=== PATIENT | female | born 1965 | race Caucasian/White ===

== ENCOUNTER → 2016-10-18 | Outpatient (CLI) | payer MEDICARE, MEDICAID ==
[~2016-10-18] MED LIST: AMLO5TAB PO; AZITHROMYCIN250 MG PO; BACTRIM DS 8001 TA1 PO; BENZONATATE100 M1 PO; COMBIVENT INH14.7 GM IN; DIAZEPAM10 MG PO; HYZAAR 50-12.51 EACH PO; LISINOPRIL 10MG10 MG PO; LOSARTAN POTAS100 MG PO; MEDROL 4MG. DOSE4 MG PO; NIZORAL 2%15 GM/TUBE EX; NORCO1 TAB PO; PHENERGAN 25MG.25 M1 PO; TEKTURNA150 MG PO; VALIUM 10MG TAB10 MG; VALIUM10 MG PO; VICODIN ES 7.51 EACH PO; ZITHROMAX Z PA250 MG PO
--- NOTE | 2016-10-18 15:26 | RADIOLOGY REPORT PS360 ---
KNEE-4 OR 5 VIEWS-LT HISTORY: LEFT KNEE PAIN,MELCHOR SHOULDER PAIN ORDERING PHYSICIAN: Ramesh Berman MD PATIENT AGE: 51 years COMPARISON: None FINDINGS: Weightbearing views are performed There remains slight decrease in the joint space medially as before consistent with minor osteoarthritic change. No change with no acute finding. IMPRESSION: No change minimal osteoarthritic changes of the medial compartment of the knee
--- NOTE | 2016-10-18 15:28 | RADIOLOGY REPORT PS360 ---
[id number] VIEWS HISTORY: Left shoulder pain LEFT KNEE PAIN,MELCHOR SHOULDER PAIN ORDERING PHYSICIAN: Ramesh Berman MD PATIENT AGE: 51 years COMPARISON: None FINDINGS: No fracture or dislocation. No lytic or blastic change. There is normal mineralization. The joint spaces are well-preserved. There is minimal osteophyte formation along the inferior glenoid. No subacromial stenosis IMPRESSION: Minimal osteoarthritic change left shoulder
--- NOTE | 2016-10-18 15:29 | RADIOLOGY REPORT PS360 ---
[id number] VIEWS HISTORY: LEFT KNEE PAIN,MELCHOR SHOULDER PAIN ORDERING PHYSICIAN: Ramesh Berman MD PATIENT AGE: 51 years COMPARISON: None FINDINGS: No fracture or dislocation. There is mild hypertrophic change of the acromioclavicular joint. Small subcortical cyst is present at the greater tuberosity of the humerus. IMPRESSION: Minimal osteoarthritic change of the acromioclavicular joint
== END ==
LOC: RAD 13:54
DX: M25.562 Pain in left knee (principal); M25.511 Pain in right shoulder; M25.512 Pain in left shoulder

== ENCOUNTER 2016-11-07 13:00 | Emergency (ER) | payer MEDICARE, MEDICAID ==
[~2016-11-07] VITALS: Ht 157.5 cm; Wt 89.4 kg
--- NOTE | 2016-11-07 13:39 | Emergency Room Report ---
History of Present Illness Time Seen by 130Lesly Presenting Problem in Triage Pt arrived:Walked Presenting Problem:PT C/O COUGH, MUCUS, DRAINAGE, AND "RATTLING" IN HER CHEST. PT BELIEVES SHE CAUGHT BRONCHITIS FROM HER DAUGHTER. 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 N Clinical Suspician of Infection? Y Mental Status: 1 - Regular (Normal Baseline) Sepsis Risk:Possible Sepsis Risk Have you (or family members/close friends) recently traveled outside the [place]? N If Yes, where/when: Have you had exposure to infectious disease within the past month? N TB? Other? Specify: Source patient, RN notes reviewed Exam Limitations no limitations Comment comes to the ED with complaints of cough, congestion in both head and chest. Daughter recently diagnosed with Bronchitis and she thinks she may have it also. She is on Vicodin and Valium and has had a low grade temp some pain in chest into back and an elevated pulse up to 111 in the ED Cardiac Chest Pain Chest pain indicative of cardiac No ALLERGIES Coded Allergies: Sulfa (Sulfonamide Antibiotics) (UNKNOWN 10/03/15) duloxetine (UNKNOWN 10/03/15) Home Medications Reported Medications Albuterol-Ipratropium (Combivent Inhaler) 2 PUFFS IN PRN Losartan Potassium (Losartan 100MG) 100 MG PO DAILY HYDROCODONE/ACETAMINOPHEN ([place] 7.5-325 Tablet) 1 TAB PO TID Diazepam (Diazepam 10MG) 10 MG PO TID Amlodipine Besylate (Amlodipine) 5 MG PO DAILY History Medical History General CAD? No Angina: Yes [place]: No Hypertension? Yes Hyperlipidemia? No CHF? No DVT? No PE? No COPD? No Asthma? Yes Anemia? No GERD? No Gastric ulcers? No GI Bleed? No Hernia? No Thyroid Problems? No Hypothyroidism? No CVA? No Seizures? No Diabetes? No Renal Insuffiency? No End Stage Renal Disease? No UTI? No Stones? No BPH? No GB Disease: No Nephritic Syndrome? No Asplenia? No Hepatitis? No Sickle Cell Disease? No Arthritis? Yes Migraines? No Cataracts? No Glaucoma? No MRSA? No HIV? No TB? No Anxiety? Yes Depression? Yes Cancer? No More? 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 Respiratory see HPI Cardiovascular see HPI Psychiatric/Neurological see HPI Physical Exam Vital Signs Vital Signs Date Time Temp Pulse Resp B/P Pulse O2 O2 Flow FiO2 Ox Delivery Rate 11/07 1414 104 20 132/96 96 11/07 1309 97.8 111 20 135/84 96 11/07 1301 97.8 111 20 135/84 96 General Appearance no apparent distress, obese Ear, Nose, Throat normal ENT inspection Neck supple Respiratory Status No: respiratory distress. Lung Sounds bilateral: rhonchi. Cardiovascular normal exam, regular rate/rhythm, tachycardia Neurologic alert, installment agent II-XII nml as tested, normal exam Skin diaphoresis Medical Decision Making LABS/Meds/Orders Pt receiving controlled substance in ED? No Results/Orders Laboratory Tests 11/07/16 1410: Influenza Type A Ag NOT DETECTED, Influenza Type B Ag NOT DETECTED 11/07/16 1335: Lactic Acid 1.4 11/07/16 1335: Sodium 139, Potassium 4.0, Chloride 106, Carbon Dioxide 28, BUN 13, Creatinine 0.9, Estimated Creat Clear 102, Estimated GFR (MDRD) 65, Glucose 133 H, Calcium 8.4 L, Total Bilirubin 0.3, AST 15, ALT 22, Alkaline Phosphatase 75, Creatine Kinase 66, CK-MB (CK-2) Rel Index 0.8, CK and CKMB Interp < 0.5, Troponin I < 0.02, Total Protein 7.6, Albumin 3.5, Globulin 4.1 H, Albumin/Globulin Ratio 0.9 L, WBC 6.8, RBC 4.72, Hgb 14.0, Hct 40.8, MCV 86.6, RDW 13.5, Plt Count 211 , MPV 7.8, Gran % 56.6, Gran # 3.9, Lymphocytes % 34.0, Monocytes % 4.9, Eosinophils % 4.0, Basophils % 0.5, Lymphocytes # 2.3, Monocytes # 0.3, Eosinophils # 0.3, Basophils # 0.0, PUBS MCHC 34.2, MCH 29.6 Current Medication Orders Sig/Zainab Start time Last Medication Dose Route Stop Time Status Admin Albuterol/Ipratropium 3 ML ONCE ONE 11/07 1445 DC 11/07 INH 11/07 1446 1443 Albuterol/Ipratropium 0 .STK-MED ONE 11/07 1433 DC INH Albuterol/Ipratropium 3 ML ONCE ONE 11/07 1330 DC 11/07 INH 11/07 1331 1324 Sodium Chloride 10 ML PRN PRN 11/07 1330 AC IV 11/08 1320 Orders Procedure Date/time Status RT REQUEST DUONEB 11/07 1440 Active CULTURE, THROAT 11/07 1410 Active STREP SCREEN THROAT 11/07 1339 Complete INFLUENZA A&B ANTIGENS 11/07 1339 Complete ELECTROCARDIOGRAM REQUEST 11/07 1321 Active RT REQUEST DUONEB 11/07 1321 Active IV SALINE LOCK 11/07 1321 Active LACTIC ACID 11/07 1321 Complete CBC WITH AUTO DIFF 11/07 1321 Complete CARDIAC ENZYMES 11/07 1321 Complete CHEM 12 PROFILE 11/07 1321 Complete XRAY/CT/US XRAY/CT/US XRAY chest, sinus XR interpretation by discussed w/radiologist Xray Results normal/NAD Departure Departure Time of Disposition 1504 Disposition DC Home or Self Care(routine) Clinical Impression Primary Impression: Acute upper respiratory infection Condition STABLE Patient Instructions DI for Viral Upper Respiratory Infection -- Adult Additional Instructions Use meds as directed and return to the ED as needed. Discharge Counseling Counseled pt/family regarding diagnosis, test results, medications/RX, home care, follow up needs Prescriptions Current Visit Scripts Doxycycline Hyclate (Vibramycin) 100 MG PO BID #20 CAP Guaifenesin/Dextromethorphan (Robitussin Cough-Chest Dm Liq) 5 ML PO Q4HP PRN cough #240 ML ED Critical Care Critical Care No If Critical Care minutes are documented, the time involved in the performance of seperately reportable procedures was not counted toward critical care time documented. I directly delivered medical care to this critically ill and/or injured patient. Timely evaluation and treatment was necessary to address the significant organ system(s) dysfunction present in this patient. at [id number]
[2016-11-07 13:48] LABS: LYMPH # 2.3 K/mm3 (0.7-4.5)
--- NOTE | 2016-11-07 14:07 | RADIOLOGY REPORT PS360 ---
CHEST(2 VIEWS-NOT PORTABLE) HISTORY: NON-PROD COUGH ORDERING PHYSICIAN: Agnes Ibarra MD PATIENT AGE: 51 years COMPARISON: 10/28/2012 FINDINGS: The cardiomediastinal silhouette and pulmonary vascularity are within normal limits. The lungs are clear without infiltrates, suspicious nodules, or pleural effusions. No acute bony abnormalities. Pericardial fat pad incidentally noted on the right IMPRESSION: Negative chest, no acute finding
--- NOTE | 2016-11-07 14:08 | RADIOLOGY REPORT PS360 ---
SINUS SERIES 3 VIEWS CLINICAL INDICATION: congestion ORDERING PHYSICIAN: Agnes Ibarra MD PATIENT AGE: 51 years COMPARISON: None TECHNIQUE:Axial, sagittal, and coronal images are generated and reviewed without contrast COMPARISON: None FINDINGS:No mucosal thickening or sinus air-fluid level. No acute bony anomalies. No lytic or blastic change. IMPRESSION: Negative paranasal sinuses
[2016-11-07 14:14] LABS: BUN 13 mg/dL (7-18)
[2016-11-07 14:22] LABS: GFR (ESTIMATED) 65 ML/MIN (59-)
[2016-11-07 14:41] LABS: STREP SCREEN (RAPID) NEGATIVE
[2016-11-07 15:21] VITALS: BP 119/95
== END 2016-11-07 15:21 | disposition home or self-care (01) ==
LOC: ER 13:00
PROVIDERS: General Practice
DX: J06.9 Acute upper respiratory infection, unspecified (principal); I10 Essential (primary) hypertension; J45.909 Unspecified asthma, uncomplicated; Z79.891 Long term (current) use of opiate analgesic; M79.7 Fibromyalgia; M19.90 Unspecified osteoarthritis, unspecified site

== ENCOUNTER 2017-01-24 15:57 | Emergency (ER) | payer MEDICARE, MEDICAID ==
[~2017-01-24] VITALS: Ht 157.5 cm; Wt 89.4 kg
[~2017-01-24 15:57] MED LIST changes: +DOXYCYCLINE HY100 M4 PO; +ROBITUSSIN COU237 M1 PO
[2017-01-24 16:12] LABS: LYMPH # 1.9 K/mm3 (0.7-4.5); LYMPH % 36.5 % (10-50.0)
--- NOTE | 2017-01-24 16:22 | Emergency Room Report ---
History of Present Illness Time Seen by 1613 Presenting Problem in Triage Pt arrived:Wheelchair Presenting Problem:PT C/O DIZZINESS AND HEADACHE SINCE LAST NIGHT AND CHEST PAIN STARTED AROUND 0245 THIS MORNING. 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 N Clinical Suspician of Infection? N Mental Status: 1 - Regular (Normal Baseline) Sepsis Risk:Low Sepsis Risk Have you (or family members/close friends) recently traveled outside the [place]? N If Yes, where/when: Have you had exposure to infectious disease within the past month? N TB? Other? Specify: Patient with multiple complaints she complains of a moderate headache over her entire head that's been there since yesterday she states that she has malaise and fatigue she states that she also has developed chest pressure today guarding at 2:45 AM pressure/tightness in her chest no radiation moderate in severity she states she has nausea she states she has malaise and fatigue. She states she was told her cholesterol was 270 and that she was at risk for both stroke and heart attack recently by her doctor. ALLERGIES Coded Allergies: Sulfa (Sulfonamide Antibiotics) (UNKNOWN 10/03/15) duloxetine (UNKNOWN 10/03/15) Home Medications Active Scripts Doxycycline Hyclate (Vibramycin) 100 MG PO BID #20 CAP Prov: 11/07/16 Guaifenesin/Dextromethorphan (Robitussin Cough-Chest Dm Liq) 5 ML PO Q4HP PRN cough #240 ML Prov: 11/07/16 Reported Medications Albuterol-Ipratropium (Combivent Inhaler) 2 PUFFS IN PRN Losartan Potassium (Losartan 100MG) 100 MG PO DAILY HYDROCODONE/ACETAMINOPHEN ([place] 7.5-325 Tablet) 1 TAB PO TID Diazepam (Diazepam 10MG) 10 MG PO TID Amlodipine Besylate (Amlodipine) 5 MG PO DAILY History Medical History General CAD? No Angina: Yes [place]: No Hypertension? Yes Hyperlipidemia? No CHF? No DVT? No PE? No COPD? No Asthma? Yes Anemia? No GERD? No Gastric ulcers? No GI Bleed? No Hernia? No Thyroid Problems? No Hypothyroidism? No CVA? No Seizures? No Diabetes? No Renal Insuffiency? No End Stage Renal Disease? No UTI? No Stones? No BPH? No GB Disease: No Nephritic Syndrome? No Asplenia? No Hepatitis? No Sickle Cell Disease? No Arthritis? Yes Migraines? No Cataracts? No Glaucoma? No MRSA? No HIV? No TB? No Anxiety? Yes Depression? Yes Cancer? No More? 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 Eyes: conjunctiva/corneas clear ENT: Mucous membranes moist. Neck: No jugular venous distention. Cardiac: regular rate and rhythm Lungs: Clear to auscultation bilaterally Abdomen: Nontender, Nondistended, positive bowel sounds, no rebound : No CVA tenderness Extremities: no edema Musculoskeletal: No chest wall tenderness Skin: No rashes or lesions to exposed skin. Neurologic: Alert. Alert and oriented x3 Cranial nerves intact Strength 5 out of 5 Sensation intact to light touch Psychiatric: Normal affect (Ger BURNETTE, Simone) General Appearance normal appearance Respiratory Status No: respiratory distress. Cardiovascular normal exam Neurologic alert Medical Decision Making LABS/Meds/Orders Pt receiving controlled substance in ED? No Comment Patient with multiple complaints headache chest pain slurred speech which is resolved. A candidate for TPA currently if she is not having any neurologic symptoms. workup is pending Electrocardiogram read by myself shows a rate of 103, normal sinus rhythm, normal axis, no QT prolongation, lvh, nonspecific electrocardiogram 609pm CT head comes back as no acute disease by radiology the chest x-ray read by radiology as no acute disease 715 dw patient admission, rule out, she is thinking of leaving [facility], dw risk of sudden , permanent disability, she is discussing with with her family member now. Pt is chest pain free now. discussed with pt again, still thinking about it, asked if family member could stay, staff stated they could. 735 pt desires [facility] Results/Orders Laboratory Tests 01/24/17 1815: Troponin I < 0.02, Urine Color YELLOW, Urine Appearance CLEAR, Urine pH 6.0, Ur Specific [place] 1.025, Urine Protein NEGATIVE, Urine Ketones NEGATIVE, Urine Blood NEGATIVE, Urine Nitrate NEGATIVE, Urine Bilirubin NEGATIVE, Urine Urobilinogen 4.0, Ur Leukocyte Esterase NEGATIVE, Urine RBC NONE, Urine WBC OCC, Ur Squamous Epith Cells TNTC, Urine Bacteria 1+, Urine Glucose NEGATIVE 01/24/17 1600: Sodium 139, Potassium 3.4 L, Chloride 105, Carbon Dioxide 30, BUN 8, Creatinine 0.8, Estimated Creat Clear 115, Estimated GFR (MDRD) 75, Glucose 114 H, Calcium 8.8, Total Bilirubin 0.4, AST 18, ALT 21, Alkaline Phosphatase 70, Creatine Kinase 63, CK-MB (CK-2) Rel Index 0.8, CK and CKMB Interp < 0.5, Troponin I < 0.02, Total Protein 7.6, Albumin 3.5, Globulin 4.1 H, Albumin/Globulin Ratio 0.9 L, WBC 5.2, RBC 4.82, Hgb 14.0, Hct 41.4, MCV 85.8, RDW 13.3, Plt Count 230 , MPV 7.3 L, Gran % 54.9, Gran # 2.9, Lymphocytes % 36.5, Monocytes % 5.9, Eosinophils % 2.1, Basophils % 0.6, Lymphocytes # 1.9, Monocytes # 0.3, Eosinophils # 0.1, Basophils # 0.0, PUBS MCHC 33.9, MCH 29.1 Current Medication Orders Sig/Zainab Start time Last Medication Dose Route Stop Time Status Admin Aspirin 324 MG ONCE ONE 01/24 1615 DC 01/24 PO 01/25 1616 1603 Nitroglycerin 0.4 MG [id number] PRN 01/24 161 AC SL Sodium Chloride 10 ML PRN PRN 01/24 161 AC IV 01/25 1602 Nitroglycerin 0 .STK-MED ONE 01/24 1601 DC SL Aspirin 0 .STK-MED ONE 01/24 1600 DC .ROUTE Orders Procedure Date/time Status DIET-NOTHING BY MOUTH 01/24 D Active TROPONIN I 01/[address] HEAD REQ 01/24 1618 Complete ELECTROCARDIOGRAM REQUEST 01/24 160 Active IV SALINE LOCK 01/24 160 Active URINALYSIS/COMPLETE 01/24 160 Complete CBC WITH AUTO DIFF 01/24 160 Complete CARDIAC ENZYMES 01/24 160 Complete CHEM 12 PROFILE 01/24 1602 Complete Departure Departure Time of Disposition 1915 Disposition Against Medical Advice Clinical Impression Primary Impression: Chest pain Qualifiers: Chest pain type: unspecified Qualified Code: R07.9 - Chest pain, unspecified Secondary Impressions: Headache Qualifiers: Headache type: unspecified Headache chronicity pattern: unspecified pattern Intractability: not intractable Qualified Code: R51 - Headache Condition STABLE Referrals JONH MOORE (Family) Patient Instructions DI for Chest Pain Additional Instructions you are signing out against medical advice - risk of sudden permanent disability return if you change your mind to ER. return if any problems, slurred speech, pain. follow up with PMD. you are at risk for stroke heart attack, other, which could have been found on admission. call you doctor first thing in morning Discharge Counseling Counseled pt/family regarding diagnosis, test results, medications/RX, home care, follow up needs ED Critical Care Critical Care No at 1938
[2017-01-24 16:41] LABS: BUN 8 mg/dL (7-18)
[2017-01-24 16:42] LABS: GFR (ESTIMATED) 75 ML/MIN (59-)
--- NOTE | 2017-01-24 16:47 | RADIOLOGY REPORT PS360 ---
CHEST(2 VIEWS-NOT PORTABLE) HISTORY: Chest pain and shortness of air CHEST PRESSURE ORDERING PHYSICIAN: Simone Cyr MD PATIENT AGE: 51 years COMPARISON: 11/07/2016 FINDINGS: The cardiomediastinal silhouette and pulmonary vascularity are within normal limits. The lungs are clear without infiltrates, suspicious nodules, or pleural effusions. No acute bony abnormalities. IMPRESSION: Negative chest, no acute finding
--- NOTE | 2017-01-24 16:48 | RADIOLOGY REPORT PS360 ---
CT HEAD W/O CONTRAST HISTORY: HEADACHE, SLURRED SPEECH ORDERING PHYSICIAN: Simone Cyr MD PATIENT AGE: 51 years COMPARISON: 04/04/2011 TECHNIQUE: Axial images obtained without contrast. Brain and bone windows reviewed. FINDINGS: No midline shift, mass effect, intracranial hemorrhage, hydrocephalus, or extra-axial fluid collection is evident. The calvarium has an unremarkable appearance. No mastoid effusion. The visualized paranasal sinuses are unremarkable. IMPRESSION: Negative CT head without contrast. No acute finding. There is no evidence of intracranial hemorrhage, focal mass, or acute territorial infarction. A negative CT does not exclude an acute CVA. A follow-up head CT or MRI is recommended if neurological symptoms persist
[2017-01-24 18:26] LABS: URINE BILIRUBIN - DIPSTICK NEGATIVE (NEG); URINE BLOOD NEGATIVE (NEG)
[2017-01-24 19:02] LABS: URINE SQUAMOUS CELLS TNTC #/hpf (0-5)
[2017-01-24 19:40] VITALS: BP 155/94
== END 2017-01-24 19:42 | disposition left against medical advice (07) ==
LOC: ER 15:57
PROVIDERS: Emergency Medicine
DX: R07.9 Chest pain, unspecified (principal); R51 Headache; R42 Dizziness and giddiness; J45.909 Unspecified asthma, uncomplicated; Z88.2 Allergy status to sulfonamides; Z88.8 Allergy status to other drugs, medicaments and biological substances; Z79.51 Long term (current) use of inhaled steroids; Z79.899 Other long term (current) drug therapy; Z86.79 Personal history of other diseases of the circulatory system